=== PATIENT | female | born 1955 | race Caucasian/White ===

== ENCOUNTER 2020-09-25 08:50 | Outpatient (REF) | payer OTHER, SELFPAY | END 2020-09-25 08:51 | disposition home or self-care (01) | LOC: HO.WFDLDS 08:50 | PROVIDERS: PCP Internal Medicine; Visit Provider Internal Medicine | DX: Z20.828 Contact with and (suspected) exposure to other viral communicable diseases (principal) | CPT/HCPCS: C9803; U0003 ==

== ENCOUNTER 2021-08-16 15:11 | Outpatient (REF) | payer OTHER, SELFPAY ==
[2021-08-16 15:20] LABS: MANUAL DIFF FLAG NO
[2021-08-16 16:31] LABS: Basophils Percent Auto 0.5 % (0-2); Eosinophils Percent Auto 0.5 % (0-4); Hematocrit 39.8 % (37.0-47.0); Imm Gran Abs Auto 0.02 X10*3/uL (0.00-0.03); Imm Gran Pct Auto 0.2 % (0.0-0.4); Lymphocytes Absolute Auto 2.7 X10*3/uL (1.2-4.9); Lymphocytes Percent Auto 30.9 % (20-40); Mean Corpuscular HGB Conc 32.7 g/dl (31.0-35.0); Mean Corpuscular Hemoglobin 29.2 pg (27.0-33.0); Mean Corpuscular Volume 89.4 fL (80.0-98.0); Mean Platelet Volume 10.9 fL (9.4-12.3); Monocytes Absolute Auto 0.7 X10*3/uL (0.1-1.2); Neutrophils Absolute Auto 5.2 x10*3/uL (2.0-8.3); Neutrophils Percent Auto 59.9 % (45-73); Platelet Count 275 X10*3/uL (160-400); Red Blood Count 4.45 X10*6/uL (4.20-5.50); Red Cell Distribution Width 12.3 % (11.0-16.0); White Blood Count 8.6 X10*3/uL (4.8-10.8)
[2021-08-16 17:15] LABS: Alanine Aminotransferase 17 U/L (0-31); Albumin Level 4.3 g/dL (3.5-5.0); Alkaline Phosphatase 102 U/L (39-117); Anion Gap 11 (12-20); Aspartate Amino Transferase 15 U/L (5-31); Bilirubin Total 0.2 mg/dL (0.0-1.0); Blood Urea Nitrogen 13 mg/dL (9-16); Calcium 9.6 mg/dL (8.4-10.2); Carbon Dioxide 31 mmol/L (22-29); Chloride 103 mmol/L (96-108); Cholesterol 223 mg/dL; Estimated Glomerular Filt Rate > 60; Glucose Fasting 78 mg/dL (60-99); HDL Cholesterol 52 mg/dL; LDL Cholesterol Calculated 107 mg/dl; Potassium 4.2 mmol/L (3.3-5.1); Sodium 141 mmol/L (135-145); Total Protein 6.9 g/dL (6.5-8.0); Triglycerides 324 mg/dL
[2021-08-16 17:36] LABS: TSH reflex Free T4 1.82 uIU/mL (0.32-4.0); Vitamin D 25-OH Total 14.5 ng/mL (>30)
== END 2021-08-16 15:12 | disposition home or self-care (01) ==
LOC: HO.LAB 15:11
PROVIDERS: Visit Provider Internal Medicine
DX: I10 Essential (primary) hypertension (principal); E78.00 Pure hypercholesterolemia, unspecified; E55.9 Vitamin D deficiency, unspecified
CPT/HCPCS: 36415; 80053; 80061; 82306; 84443; 85025

== ENCOUNTER 2022-11-17 07:32 | Day surgery (SDC) | payer OTHER, SELFPAY ==
--- NOTE | 2022-11-17 07:49 | P.CONAN_ITS ---
HPI - Anesthesia Eval Consult details Narrative: 66 yr old female for screening colon PMFSH Active Problems Active Problems: All Active Problems (Updated 11/14/22 @ 12:14 by Stephania Callaway RN) GERD without esophagitis (Acute) Annual physical exam (Acute) Lipoma of back (Acute) Acute lumbar myofascial strain (Acute) Obesity (BMI 30-39.9) (Acute) Sigmoid diverticulitis (Acute) Cataract, left eye (Acute) Past Medical History Medical History (Updated 11/14/22 @ 12:14 by Stephania Callaway RN) Cataract, left eye Diverticulitis GERD without esophagitis IBS (irritable bowel syndrome) Obesity (BMI 30-39.9) Overweight (BMI 25.0-29.9) Sigmoid diverticulitis Family History Family History Mother Diabetes Heart problem Father Diabetes Family history of problems with anesthesia: No Surgical History Surgical History (Updated 11/14/22 @ 12:14 by Stephania Callaway RN) H/O esophagogastroduodenoscopy H/O oral surgery Hx of hand surgery History of Problems with Anesthesia: No Social History Social History Housing: House Alcohol intake: never Patient Tobacco Use Status: Former Tobacco user Second Hand Smoke Exposure: Yes Advance Directives: No Advance Directives Information Provided: Yes service: No Current occupational status: employed Current occupation: social worker health services d[employer] Meds Allergies Allergy/AdvReac Type Severity Reaction Status Date / Time levofloxacin Allergy Intermediate pruritic Verified 08/16/21 14:46 rash metronidazole Allergy Unknown Verified 11/14/22 12:12 Active Medications: Current Medications Sodium Biphosphate/Sodium Phosphate (Sodium Phosphate,Towns-Dibasic 133 Ml Enema) 133 ml [place] ONCE PRN PRN Reason: Poor Colonoscopy Prep Results Home Medications Medication Instructions Recorded Confirmed Last Taken Type ibuprofen 200 mg tablet (Advil) 200 mg PO Q6H PRN 04/16/21 08/16/21 Unknown History Exam Exam Date and Time: November 17, 2022 0749 Airway Mallampati Class: II TM Dist: >3cm Neck ROM: Full Heart: rrr Lungs: cta Assessment and Plan Assessment Anesthesia Assessment: Anesthesia Plan Discussed and Chart Reviewed Final Anesthetic Review Family History of Problems with Anesthesia: No History of Problems with Anesthesia: No NPO: Yes ASA Class: II Final Preanesthetic Review: No Changes in Pt Med Stat, Meds/Allgs Chart Reviewed, Consent Obtained/Reviewed and Anes Risks/Benef Reviewed Patient Risk: Low Procedure Risk: Low Anesthetic Plan Anesthetic Plan: MAC: Disposition: Standard PACU
[2022-11-17 07:56] VITALS: BMI 29.2
[2022-11-17 08:00] VITALS: BP 182/75; PULSE 83; RESP 18; TEMP 36.6; O2SAT 98
[2022-11-17 08:01] VITALS: BMI 29.2
[2022-11-17 10:10] VITALS: BP 135/72; PULSE 65; RESP 16; TEMP 36.3; O2SAT 98
--- NOTE | 2022-11-17 10:14 | PM.OP ---
Brief Operative Note Date of Service: 11/17/22 Pre-op diagnosis: Scree Procedure: Colonoscopy to the cecum and TI with cold snare polypectomy at 50cm, and biopsy and removal of polyp Surgeon: Ganesh Pal Was an Adoption Social Worker used for this Procedure?: No Estimated blood loss (mL): 2.0 Pathology: other (A. Polyp at 50cm B. rectal polyp) Condition: stable Disposition: PACU
[2022-11-17 10:25] VITALS: BP 125/73; PULSE 62; RESP 16; TEMP 36.3; O2SAT 97
--- NOTE | 2022-11-17 16:19 | OP_ITS ---
SURGEON: Ganesh Pal MD INDICATIONS: The patient presents for evaluation of colorectal cancer screening and personal history of tubular adenomas of the colon. Full consent was obtained from her for this, including risks of bleeding and perforation. PREOPERATIVE DIAGNOSIS: POSTOPERATIVE DIAGNOSIS: PROCEDURE PERFORMED: Colonoscopy to the cecum and terminal ileum with cold snare polypectomy and biopsy and removal of polyp. ESTIMATED BLOOD LOSS: COMPLICATIONS: ANESTHESIA: Monitored anesthesia care ASSISTANTS: SPECIMENS: PREOPERATIVE DIAGNOSES: Colorectal cancer screening and personal history of tubular adenoma of the colon. POSTOPERATIVE DIAGNOSES: Colorectal cancer screening and personal history of tubular adenoma of the colon, colon polyps, diverticulosis, and internal hemorrhoids. DESCRIPTION OF PROCEDURE: The patient was placed in the left lateral decubitus position. The digital rectal exam revealed no abnormalities. The Olympus video pediatric colonoscope was then entered into the rectum and advanced to the cecum. Advancement past the sigmoid colon was quite difficult due to her previous episodes of diverticulitis and presumed adhesions. However, with abdominal wall pressure, I was able to get past and then reach the cecum. Once in the cecum, I did identify a normal appearing cecal pouch with appendiceal orifice and normal appearing ileocecal valve. The terminal ileum was cannulated and appeared normal. The scope was then withdrawn back in the colon. The entire cecum and ileocecal valve appeared normal. The scope was then slowly withdrawn assessing all mucosal surface carefully. Preparation was excellent. At 50cm, there was a 5 mm polyp, which was removed by cold snare polypectomy and recovered by suction. The polypectomy site appeared clean, without any sign of residual polyp nor significant bleeding. In the rectum, there was an approximately 3 mm polyp which was biopsied and completely removed with cold biopsy forceps. I did not visualize any other polyps, colitis nor angiodysplasia. There were occasional diverticula in the ascending colon. There was a moderate amount of diverticulosis and spasm in the sigmoid colon. I did not visualize any sign of colitis nor angiodysplasia. In the rectum, the scope was retroflexed visualizing internal hemorrhoids, but no other pathology. The rectal mucosa appeared normal. The scope was straightened and withdrawn from the patient. She tolerated the procedure well and was returned to the recovery area in stable condition. IMPRESSION: 1. Colon polyps. 2. Diverticulosis. 3. Internal hemorrhoids. PLAN: The results of the pathology will be checked. I would recommend a repeat colonoscopy in 5 years for further screening and surveillance. She will continue her Metamucil on a daily basis and dicyclomine on a p.r.n. basis. If she has recurrent episodes of diverticulitis she will need to call, but she should also follow up with Dr. Bishop in that regard given her previous history and our recommendations for surgery given all the previous episodes of the diverticulitis with some associated complications including an abscess that had to be drained with CT guidance. She was advised not to use any aspirin nor NSAIDs for one week. MD JEANNINE Newell/PATRICE / [id number] MTDD
== END 2022-11-17 11:10 | disposition home or self-care (01) ==
PROVIDERS: PCP Internal Medicine; Visit Provider Internal Medicine
PROC: 0DJD8ZZ Inspection of Lower Intestinal Tract, Via Natural or Artificial Opening Endoscopic (ICD-10-PCS; CPT 45378; principal; 2022-11-17 08:30)
DX: Z12.11 Encounter for screening for malignant neoplasm of colon (principal); Z86.010 Personal history of colon polyps; Z80.0 Family history of malignant neoplasm of digestive organs; D12.5 Benign neoplasm of sigmoid colon; K62.1 Rectal polyp; K57.30 Diverticulosis of large intestine without perforation or abscess without bleeding; K64.8 Other hemorrhoids; K58.9 Irritable bowel syndrome, unspecified; Z87.19 Personal history of other diseases of the digestive system; K21.9 Gastro-esophageal reflux disease without esophagitis; Z79.1 Long term (current) use of non-steroidal anti-inflammatories (NSAID); Z79.899 Other long term (current) drug therapy; Z88.1 Allergy status to other antibiotic agents; Z87.891 Personal history of nicotine dependence
CPT/HCPCS: 45385; 45380; 88305; J2250

== ENCOUNTER 2024-11-09 13:04 | Outpatient (AMB) | payer OTHER, SELFPAY ==
--- NOTE | 2024-11-09 13:06 | MHC.PC.OV ---
Vital Signs 11/09/24 13:07 Height 5 ft 6 in Weight 185 lb BMI 29.9 BP 124/80 Blood Pressure Location Lt brachial Position Sitting Pulse 74 Pulse Source Pulse Oximeter Pulse Oximetry (%) 98 Oxygen Delivery Method Room Air Intake Visit Reasons: re-establish care DR Ha Casing Cooker Required: No Accompanied by: Self / Same As Patient Allergies levofloxacin Allergy (Intermediate, Verified 11/09/24 13:26) pruritic rash metronidazole Allergy (Verified 11/09/24 13:26) Unknown Medication List - Last Reconciled 11/09/24 by SEAN Espino dicyclomine 10 mg PO QID PRN 15 days ibuprofen (Advil) 200 mg PO Q6H PRN Tobacco use date assessed: 11/09/24 Fall risk assessment: 2 + Falls in past year Last assessed Fall Risk: 11/09/24 Dental Screening Dental Screen Date: 11/09/24 Did you have a dental visit in the last 12 months?: Yes Did you have a dental problem in the last 6 months where you did not have access to dental care?: No Was dental information given to patient?: Patient has dentist HPI re-establish care DR Ha HPI Details The patient 68-year-old female with significant past medical history GERD, diverticulosis, frequent reoccurring sigmoid diverticulitis, IBS and obesity She is a patient of Dr. Ha, she was last seen on 08/16/2021. The patient is followed by Dr. Pal, oil well service unit operator-patient reports that she was referred by Dr. Pal to Dr. Bishop in General surgery few years ago due to her recurrent diverticulitis. The patient reports that she consulted with Dr. Bishop and was told when he is ready for the surgery to let him know Patient reports that she was hesitant about doing the surgery and that they explained to her that it is better to get it done electively instead of waiting until she has a perforation. The patient reports that she is reestablishing care today that she has not seen Dr. Ha in a while. However, she needs a referral to a surgeon preferably at [facility] to get a 2nd opinion and ongoing forward with surgery to fix her diverticulosis Patient reports that she has been having diverticulitis for years on and off Reports that she finished antibiotics recently for diverticulitis and also had diverticulitis 6 months prior. Reports multiple recurrent use of antibiotics for this issue. Send reports her symptoms on and off as bloating, constipation and abdominal pressure in the suprapubic area more towards the right side. Reports that she continue to have some discomfort in the right lower quadrant but it is not as bad as it was before The patient denies smoking, alcohol use The patient requests a referral to a colorectal surgery preferably in [facility] Denies chest pain, shortness of pain, heart palpitation, dizziness [facility] Medical History (Updated 11/10/24 @ 14:13 by SEAN Espino) IBS (irritable bowel syndrome) Sigmoid diverticulitis Overweight (BMI 25.0-29.9) Cataract, left eye Obesity (BMI 30-39.9) GERD without esophagitis Diverticulitis Surgical History H/O oral surgery H/O esophagogastroduodenoscopy Hx of hand surgery Family History Mother Diabetes Heart problem Father Diabetes Social History Housing: House Alcohol intake: never Patient Tobacco Use Status: Former Tobacco user e-Cigarette/Vaping Use: Never Used Second Hand Smoke Exposure: Yes service: No Current occupational status: employed Current occupation: social staff worker dta Cognitive needs: No Hearing needs: No Vision needs: No Questionnaire PHQ-9 Over the last 2 weeks, how often have you been bothered by any of the following problems? 1. Little interest or pleasure in doing things: not at all 2. Feeling down, depressed, or hopeless: not at all 3. Trouble falling or staying asleep, or sleeping too much: not at all 4. Feeling tired or having little energy: not at all 5. Poor appetite or overeating: not at all 6. Feeling bad about yourself - or that you are a failure or have let yourself or your family down: not at all 7. Trouble concentrating on things, such as reading the newspaper or watching television: not at all 8. Moving or speaking so slowly that other people could have noticed. Or the opposite - being so fidgety or restless that you have been moving around a lot more than usual: not at all 9. Thoughts that you would be better off or of hurting yourself in some way: not at all Total score: 0 Depression Screening Interpretation: Negative Depression Screening Done: Yes 33196 - PHQ-9 Billing: Yes Source: Developed by Drs. Ganesh Lafleur, Mabel Yeboah, Ant Galvan and colleagues, with an educational honorio from [employer]. Thrive Questionnaire Date Thrive assessed: 11/09/24 I am a: Patient What is your living situation today?: I have a steady place to live Within the past 12 months, did the food you bought not last and you didn't have the money to get more?: Never true Within the past 12 months, did you worry whether your food would run out before you got money to buy more?: Never true Do you have trouble paying for medicines?: No Do you have trouble getting transportation to medical appointments?: No Do you have trouble paying your heating and electricity bill?: No Do you have trouble taking care of your child, family member or friend?: No Do you have trouble with day-to-day activities such as bathing, preparing meals, shopping, managing finances, etc.?: No Are you currently unemployed and looking for a job?: No Are you interested in more education?: No Please select the resources that you would like help with: None Currently or been in a relationship where the following occur: No concerns reported THRIVE Score: 0 AUDIT C Alcohol Use Questionnaire (AUDIT-C) 1. How often do you have a drink containing alcohol?: Never 3. How often do you have six or more drinks on one occasion?: Never Total Score: 0 JEREMY-7 AMB Questionnaire JEREMY-7 Date JEREMY - 7 assessed: 11/09/24 Feeling nervous, anxious, or on edge: 0 = Not at all Not being able to stop or control worryin = Not at all Worrying too much about different things: 0 = Not at all Trouble relaxin = Not at all Being so restless that it is hard to sit still: 0 = Not at all Becoming easily annoyed or irritable: 0 = Not at all Feeling afraid as if something awful might happen: 0 = Not at all Total JEREMY-7 score (0-4 normal; 5-9 mild; 10-14 moderate; 15-21 severe): 0 Source: Developed by Drs. Ganesh Lafleur, Mabel Yeboah, Ant Galvan and colleagues, with an educational honorio from [employer]. JEREMY-7 Assessment Billing JEREMY-7 Assessment Tool: JEREMY-7 Assessment 87107 Review of Systems Const Details: Denies chills, Denies fatigue, Denies fever(s), Denies headache(s) and Denies weakness HEENT Denies change in vision, Denies dizziness, Denies headache(s), Denies hearing loss, Denies nasal congestion, Denies sinus pain, Denies sinus pressure and Denies sore throat Card Denies chest pain, Denies lightheadedness, Denies dyspnea and Denies other (palpitations) Resp Denies cough, Denies dyspnea and Denies wheezing GI Recurrent right lower quadrant abdominal pain, Denies melena, Denies hematochezia, reports thin bowel habits (reports hx hemorrhoids), Denies dyspepsia and Denies nausea Denies hematuria and Denies dysuria Musc Denies abnormal gait, Denies myalgias, Denies arthralgias, Denies numbness and Denies tingling Skin/Breast Denies rash, Denies unusual bruising and Denies wounds Neuro Denies abnormal gait, Denies dizziness, Denies headache(s), Denies memory loss, Denies numbness, Denies Sensory deficit (Neuro), Denies tingling and Denies weakness Psych Denies anxiety, Denies depression and Denies memory loss Endo Denies cold intolerance, Denies fatigue, Denies heat intolerance, Denies polydipsia and Denies polyuria Ok/Lymph Denies easy bleeding and Denies easy bruising Aller/Immun Denies wheezing Physical exam (Primary Care) Vital Signs: Last Vital Signs Pulse 74 11/09/24 13:07 BP 124/80 11/09/24 13:07 Pulse Ox 98 11/09/24 13:07 Oxygen Delivery Method Room Air 11/09/24 13:07 BMI result Body Mass Index 29.9 Tobacco/Smoking Status: Tobacco use Status Tobacco use date assessed 11/09/24 11/09/24 13:09 Patient Tobacco Use Status Former Tobacco user 11/09/24 13:09 e-Cigarette/Vaping Use Never Used 11/09/24 13:09 PHQ-9: PHQ-9 Score PHQ-9: Total score 0 11/10/24 14:17 Depression Screening Interpretation: Negative Thrive Assessment: Date of Thrive Assessment Date Thrive assessed 11/09/24 11/09/24 13:13 Currently or been in a relationship where the following occur: No concerns reported Const Other: General: no acute distress, well developed, alert and awake Nutritional Appearance: well nourished Orientation/consciousness: patient oriented x3 HENMT Head: Yes normocephalic and Yes atraumatic Ears: hearing grossly normal bilaterally and TM's normal bilaterally General nose exam: Normal external nose present and Normal nares present Mouth: Normal oral and palatal mucosa present and moist mucous membranes Eyes Pupils: Equal, round and reactive pupils present and Pupil accommodation reflex normal EOM: EOMs intact bilaterally Neck Neck: Yes normal visual inspection, Yes no lymphadenopathy and Yes trachea midline Thyroid: Thyroid normal Carotids: no bruits Lymphatic: no lymphadenopathy noted Chest Chest palpation & inspection: normal inspection of the chest Resp Effort & Inspection: normal respiratory effort Auscultation: clear to auscultation bilaterally Cardio Rate: regular rate Rhythm: regular rhythm Heart sounds: S1 normal heart sound present, S2 normal heart sound present, no gallops, no murmurs and no rubs GI Palpation (GI): Right lower quadrant abdominal tenderness (reports that it was worse before getting the antibiotics, treated for diverticulitis) Auscultation: normal bowel sounds General: Yes no CVA tenderness Back/Spine/Pelvis Back: no CVA tenderness Cervical Spine: cervical ROM normal and No Cervical spine tenderness Thoracic/Lumbar Spine: No lumbar tenderness Skin General: warm and dry. Normal skin color. Normal skin turgor Lesions: no lesions Nails: normal Extrem General: Yes normal to inspection, No edema and No calf tenderness Psych Appearance: grossly normal Affect: normal affect Attitude: cooperative Thought process: Normal thought process present Coding Level of Care Code Est Pt Level 4 (32137) Diagnoses GERD without esophagitis K21.9 Overweight (BMI 25.0-29.9) E66.3 Sigmoid diverticulitis K57.32 Irritable bowel syndrome with constipation K58.1 Irritable bowel syndrome type: with constipation Hemorrhoids, unspecified hemorrhoid type K64.9 Hemorrhoid type: unspecified Additional Codes JEREMY-7 Assessment Billing - JEREMY-7 Assessment Tool: JEREMY-7 Assessment 91191 ([id number]) PHQ-9 - 63542 - PHQ-9 Billing: Yes ([id number]) Time Spent (min) 38 Assessment & Plan Assessment & Plan (1) GERD without esophagitis: Code(s): K21.9 - Gastro-esophageal reflux disease without esophagitis Category: Medical Plan: Stable: Patient is currently not on any PPIs. Reinforced dietary restrictions Follow up with GI as scheduled (2) Overweight (BMI 25.0-29.9): Code(s): E66.3 - Overweight Category: Medical Plan: Encouraged dietary restriction/activity as tolerated (3) Sigmoid diverticulitis: Comment: CT Abdomen and pelvis done at [facility] a few days ago on 04/13/2021 revealed (+) acute sigmoid diverticulitis Code(s): K57.32 - Diverticulitis of large intestine without perforation or abscess without bleeding Category: Medical Plan: Patient a CT of the abdomen and pelvis done at [facility] on 04/13/2021 that showed acute sigmoid diverticulitis Patient has been followed by Dr. Pal, who recommended her to Dr. Bishop in general surgery due to her frequent reoccurring diverticulitis Patient has been treated with antibiotics multiple times. Reports that she is having an average of 3 year The patient reports that she recently finished antibiotics for diverticulitis. This episode has been the worse so far and she is thinking about going forward with the surgery recommendation. However, she would like this to be done at [facility] so she is requesting a referral to a colorectal surgeon in [facility] (4) IBS (irritable bowel syndrome): Code(s): K58.9 - Irritable bowel syndrome, unspecified Category: Medical Qualifiers: Irritable bowel syndrome type: with constipation Qualified Code(s): K58.1 - Irritable bowel syndrome with constipation Plan: Patient reports that at times when she started feeling her abdominal pain, she holds off because she is hoping that is her IBS instead of the diverticulitis Reports that she does not know how they are able to determine if it is her IBS versus diverticulitis. However, she reports that she gets extremely sick during these episodes and the pain is in her right lower abdomen and somewhat in her suprapubic area as well. However she gets better with antibiotic treatments. This last episode of diverticulitis, the antibiotics took longer to be effective and this made her concerned. As a result, she made her mind up in going forward with her oil well service unit operator recommendation. (5) Hemorrhoids: Code(s): K64.9 - Unspecified hemorrhoids Category: Medical Qualifiers: Hemorrhoid type: unspecified Qualified Code(s): K64.9 - Unspecified hemorrhoids Plan: Patient has a history of hemorrhoids this was also verified and colonoscopy (11/2022). Reports recurrent constipation and thin stools. Increase dietary fiber and p.o. fluids Plan Patient has a follow up appointment on 01/03/2025. Labs were ordered for patient to do as soon as possible. She has not done blood work in a while Orders: Orders Complete Blood Count Auto Diff 11/09/24 K21.9 - Gastro-esophageal reflux disease without esophagitis, K57.32 - Diverticulitis of large intestine without perforation or abscess without bleeding, Z00.00 - Encounter for general adult medical examination without abnormal findings TSH reflex Free T4 11/09/24 K21.9 - Gastro-esophageal reflux disease without esophagitis, K57.32 - Diverticulitis of large intestine without perforation or abscess without bleeding, Z00.00 - Encounter for general adult medical examination without abnormal findings Vitamin D 25-OH Total 11/09/24 K21.9 - Gastro-esophageal reflux disease without esophagitis, K57.32 - Diverticulitis of large intestine without perforation or abscess without bleeding, Z00.00 - Encounter for general adult medical examination without abnormal findings Comprehensive [place]. Panel Fast 11/09/24 K21.9 - Gastro-esophageal reflux disease without esophagitis, K57.32 - Diverticulitis of large intestine without perforation or abscess without bleeding, Z00.00 - Encounter for general adult medical examination without abnormal findings Lipid Panel 11/09/24 K21.9 - Gastro-esophageal reflux disease without esophagitis, K57.32 - Diverticulitis of large intestine without perforation or abscess without bleeding, Z00.00 - Encounter for general adult medical examination without abnormal findings UA CC w/rflx Micro + Cult 11/09/24 K21.9 - Gastro-esophageal reflux disease without esophagitis, K57.32 - Diverticulitis of large intestine without perforation or abscess without bleeding, Z00.00 - Encounter for general adult medical examination without abnormal findings Glucose Fasting 11/09/24 K21.9 - Gastro-esophageal reflux disease without esophagitis, K57.32 - Diverticulitis of large intestine without perforation or abscess without bleeding, Z00.00 - Encounter for general adult medical examination without abnormal findings
[2024-11-09 13:07] VITALS: BP 124/80; PULSE 74; O2SAT 98; BMI 29.9
--- OUTSIDE RECORDS SUMMARY | 2024-11-09 14:27 | XMS_ITS | Clinical Summary ---
Author Organization [facility] Address [address] [place] [address] Care Team Providers Care Proof Technician Name Role Phone Justyn Ha MD Primary Care Provider [phone] Immunizations Name Administration Dates Next Due Covid-19, Vector-nr (Cassandra), 0.5 Ml 08/10/2021 ,01/07/2021 Influenza,injectable,quad,Prsrv Fr 08/16/2021, Influenza,injectable,quad,preservative 9 Influenza,seasonal,trivalent ,preservative (FLUZONE MDV) 11/05/2017,08/28/2015 Zoster (Shingrix) 09/07/2019 Social History Tobacco Use Types Packs/Day Years Used Date Smoking Tobacco: Never Assessed Intimate Partner Violence Answer Date R ecorded Fear of Current or Ex-Partner Not on file Emotionally Abused Not on file 05/28/2023 Physically Abused Not on file 05/28/2023 Sexually Abused Not on file 05/28/2023 Feel Safe at Home Not on file 05/28/2023 Comments Unknown Sex and Gender Information Value Date Recorded Sex Assigned at Not on file Legal Sex Female 4:30 PM EST Gender Identity Not on file Sexual Orientation Not on file Plan of Treatment Health Maintenance Due Date Last Done Comments Hepatitis C Screening 1955 DTaP/Tdap/Td (1 - Tdap) 12/27/1973 Mammogram/Breast Imaging 1995 Colon Cancer Screening 12/27/2000 Pneumococcal 50+ years (1 of 1 - PCV) 12/27/2005 Zoster (Shingrix) (2 of 2) 11/02/2019 09/07/2019 Bone Density 12/27/2020 COVID-19 Vaccine ( season) 2024 08/10/2021, 01/07/2021 Influenza (#1) 2024 08/16/2021, 1201/2019, 07/31/2018, Additional history exists RSV (1 - 1-dose 75+ series) 12/27/2030 HPV Vaccine Aged Out No longer eligi ble based on patient's age to complete this topic Hep A Aged Out No longer eligi ble based on patient's age to complete this topic Hep B Aged Out No longer eligi ble based on patient's age to complete this topic Hib Aged Out No longer eligi ble based on patient's age to complete this topic Meningococcal ACWY Aged Out No longer eligible based on patient's age to complete this topic Pap Smear Discontinued Zoster (Zostavax) Discontinued Insurance [facility] Care Teams Proof Technician Relationship Specialty Start Date End Date Justyn Ha MD [address] [place] [address] PCP - General Internal Medicine 11/07/20
== END 2024-11-09 14:13 | disposition home or self-care (01) ==
PROVIDERS: PCP Internal Medicine
DX: K21.9 Gastro-esophageal reflux disease without esophagitis (principal); E66.3 Overweight; K57.32 Diverticulitis of large intestine without perforation or abscess without bleeding; K58.1 Irritable bowel syndrome with constipation; K64.9 Unspecified hemorrhoids

== ENCOUNTER → 2024-11-09 13:04 | Outpatient (BNVA) | payer OTHER, SELFPAY | PROVIDERS: PCP Internal Medicine | DX: K21.9 Gastro-esophageal reflux disease without esophagitis (principal); E66.3 Overweight; Z68.29 Body mass index [BMI] 29.0-29.9, adult; K57.32 Diverticulitis of large intestine without perforation or abscess without bleeding; K58.1 Irritable bowel syndrome with constipation; K64.9 Unspecified hemorrhoids | CPT/HCPCS: 96127 ==

== ENCOUNTER 2024-11-28 09:00 | Outpatient (REF) | payer OTHER, SELFPAY ==
--- OUTSIDE RECORDS SUMMARY | 2024-11-28 09:32 | XMS_ITS ---
Author Organization [facility] Address [address] [place] [phone] Care Team Providers Care Skilled Laborer Name Role Phone Leland LOMBARDI, [place] Primary Care Provider Ganesh Cano Unavailable [phone] REASON FOR VISIT left message on v/m MEDICATIONS Medication SIG (Take, Route, Frequency, Duration) Notes Start Date End Date Status Amoxicillin-Pot Clavulanate 875-125 MG 1 tablet Orally every 8 hrs for 10 days 05/02/2024 Active Encounters Encounter Location Date Provider Diagnosis [facility] [address] [place] [address] 05/02/20 Ganesh Pal PLAN OF TREATMENT Medication Medication Name Sig Start Date Stop Date Notes Amoxicillin-Pot Clavulanate 875-125 MG 1 tablet Orally every 8 hrs for 10 days 05/02/2024
--- OUTSIDE RECORDS SUMMARY | 2024-11-28 09:32 | XMS_ITS | Patient Health Record ---
Author Organization [facility] Address [address] [place] [address] Care Team Providers Care Motor Vehicle Lecturer Name Role Phone Leland LOMBARDI, [place] Primary Care Provider Ganesh Cano Unavailable [phone] ALLERGIES Allergen (clinical drug ingredient) Drug/Non Drug Allergy documented on EMR Reaction Allergy Type Onset Date Status metronidazole Metronidazole Unknown Drug Allergy Active levofloxacin Levofloxacin Unknown Drug Allergy A ctive REASON FOR REFERRAL No Information MEDICATIONS Medication SIG (Take, Route, Frequency, Duration) Notes Start Date End Date Status Metamucil Active Amoxicillin-Pot Clavulanate 875-125 MG 1 tablet Orally every 8 hrs for 10 days 05/02/2024 Active Dicyclomine HCl 10 MG TAKE 1 TO 2 CAPSUL ES BY MOUTH EVERY 6 HOURS NEEDED FOR ABDOMINAL CRAMPS/DISCOMFORT for 5 Active Fiber Choice Active Tylenol PRN Active Ibuprofen PRN Active IMMUNIZATIONS Vaccine Route Administration Date Status Comme nts Influenza Unknown 09/15/2019 Administered Influenza Unknown 08/22/2020 Administered Influenza Unknown 06/05/2022 Administered SOCIAL HISTORY Tobacco Use: Social History Observation Description Date Details (start date - stop date) Former Smoker NA - NA Sex Assigned At : Social History Observation Description Sex Assigned At Unknown Tobacco Use/Smoking Question Answer Notes Patient is a former smoker When did you stop smoking? 34 years ago How long has it been since you last smoked? > 10 years Alcohol Screen Question Answer Notes Did you have a drink containing alcohol in the p ast year? No Points 0 Interpretation Negative PROBLEMS Problem Type ICD Code Onset Dates Problem Status W/U Status Risk SNOMED Code Notes Problem Encounter for screening for malignant neoplasm of colon (Z12.11) Active confirmed Screening for malignant neoplasm of colon (778409812) Problem History of adenomatous polyp of colon (Z86.010) Active confirmed History o f adenomatous polyp of colon (198606821) Problem Diverticulitis (K57.92) Active confirmed 690591206 Problem Gastroesophageal reflux disease, esophagitis presence not specified (K21.9) Active confirmed 787148143 Problem Family history of colon cancer (Z80.0) Active confirmed 479837613 Problem Abnormal CT scan, sigmoid colon (R93.3) Active confirmed 234840648 Problem Irritable bowel syndrome, unspecified type (K58.9) Active confirmed 73405769 Problem Abdominal pain, acute, left lower quadrant (R10.32) Active confirmed Left lower quadrant pain (325483269) Problem Diverticulosis of colon (K57.30) Active confirmed Diverticulosi s of colon (941043459) Encounters Encounter Location Date Provider Diagnosis [facility] [address] [place] [address] 05/02/2024 Ganesh Pal [facility] [address] [place] [address] 10/31/2024 Ganesh Pal PLAN OF TREATMENT Pending Test Test Name Order Date BUN 11/15/2020 BUN 01/26/2020 BUN 03/07/2020 CREATININE 11/15/2020 CREATININE 01/26/2020 CREATININE 03/07/2020 LIVER PROFILE 11/15/2020 AMYLASE 11/15/2020 LIPASE 11/15/2020 CBC w DIFF 11/15/2020 CT ABD & PELVIS WITH CONTRAST 11/15/2020 Future Test Test Name Order Date UPPER GI ENDOSCOPY 07/31/2017 COLONOSCOPY 07/31/2017 COLONOSCOPY 09/02/2022 Insurance Providers Payer Name Payer Address Payer Phone Subscriber Number Group Number Insured Name Patient Relationship to Insured Coverage Start Date Coverage End Date [facility] [address] [place] [phone] [id number] VIC SINGH Self - patient is the insured MEDICAL (GENERAL) HISTORY Medical History History ICD Code Denies CT,DM,CVA,Lung disease,renal dise ase Diverticulitis 2014--seen on CT scan---o utpatient antibiotics EGD in 09/2017-HH, normal du odenal bx, gastric bx neg for Hpylori, normal esophageal biopsies Colonoscopy in 09/2017-1 sma ll tubular adenoma, colon biopsies were neg. for microscopic colitis Diverticulitis in 05/2019(out patient antibiotics) and 12/2019(hospitalized for 1 week at [facility])--CT had an abscess. She had some increasing pain toward the end of February and a followup CAT scan described improvement as compared to the CAT scan in December, but there was still some residual inflammation and a smaller abscess as compared to the scan back in December. CT scan in 04/2020 improved with no further inflammation nor abscess. She saw Dr. Bishpo in 03/2020 who reommended surgery at her discretion . Had episodes of presumed diverticulitis in 07/2020 and 11/2020 treated with outpatient po Augmentin; she had an episode of persistent left-sided abdominal discomfort in May of 2022 that resolved with outpatient Augmentin-she did not have any imaging studies done at that time. IBS Surgical History Surgery Date(Month/Year) Oral surgery Knuckle surgery cataract surgery in right eye Hospitalization History Reason Date(Month/Year)
--- OUTSIDE RECORDS SUMMARY | 2024-11-28 09:32 | XMS_ITS ---
Author Organization [facility] Address [address] [place] [phone] Care Team Providers Care Rinkman Name Role Phone Leland LOMBARDI, [place] Primary Care Provider Ganesh Cano [facility] [phone] REASON FOR VISIT diverticulitis MEDICATIONS Medication SIG (Take, Route, Frequency, Duration) Notes Start Date End Date Status Amoxicillin-Pot Clavulanate 875-125 MG 1 tablet Orally every 8 hrs for 10 days 05/02/2024 Active Encounters Encounter Location Date Provider Diagnosis [facility] [address] [place] [phone] 10/31/2024 Ganesh Pal PLAN OF TREATMENT Medication Medication Name Sig Start Date Stop Date Notes Amoxicillin-Pot Clavulanate 875-125 MG 1 tablet Orally every 8 hrs for 10 days 05/02/2024
--- OUTSIDE RECORDS SUMMARY | 2024-11-28 09:33 | XMS_ITS | Clinical Summary ---
Author Organization [facility] Address [address] [place] [address] Care Team Providers Care [employer] Librarian Name Role Phone Justyn Ha MD Primary Care Provider [phone] Immunizations Name Administration Dates Next Due Covid-19, [...] Pap Smear Discontinued Zoster (Zostavax) Discontinued Insurance [facility] Care Teams Elementary School Librarian Relationship Specialty Start Date End Date Justyn Ha MD [address] [place] [address] PCP - General Internal Medicine 11/07/20
[2024-11-28 10:40] LABS: MANUAL DIFF FLAG NO
[2024-11-28 10:44] LABS: Basophils Percent Auto 0.4 % (0-2); Eosinophils Absolute Auto 0.1 X10*3/uL (0.0-0.4); Hematocrit 40.2 % (37.0-47.0); Hemoglobin 13.8 g/dl (12.0-16.0); Imm Gran Abs Auto 0.04 X10*3/uL (0.00-0.03); Imm Gran Pct Auto 0.5 % (0.0-0.4); Lymphocytes Absolute Auto 2.1 X10*3/uL (1.2-4.9); Lymphocytes Percent Auto 26.8 % (20-40); Mean Corpuscular HGB Conc 34.3 g/dl (31.0-35.0); Mean Corpuscular Volume 87.4 fL (80.0-98.0); Mean Platelet Volume 10.2 fL (9.4-12.3); Monocytes Absolute Auto 0.6 X10*3/uL (0.1-1.2); Monocytes Percent Auto 7.8 % (2-11); Neutrophils Percent Auto 63.5 % (45-73); Platelet Count 274 X10*3/uL (160-400); Red Cell Distribution Width 12.3 % (11.0-16.0); White Blood Count 7.8 X10*3/uL (4.8-10.8)
[2024-11-28 11:41] LABS: TSH reflex Free T4 2.26 uIU/mL (0.32-4.0); Vitamin D 25-OH Total 20.5 ng/mL (>30)
[2024-11-28 11:55] LABS: Anion Gap 15 (12-20)
[2024-11-28 12:00] LABS: Alanine Aminotransferase 17 U/L (0-31); Albumin Level 4.2 g/dL (3.5-5.0); Alkaline Phosphatase 107 U/L (39-117); Aspartate Amino Transferase 21 U/L (5-31); Bilirubin Total 0.4 mg/dL (0.0-1.0); Blood Urea Nitrogen 10 mg/dL (9-16); Calcium 9.6 mg/dL (8.4-10.2); Carbon Dioxide 24 mmol/L (22-29); Chloride 109 mmol/L (96-108); Cholesterol 206 mg/dL (<200); Estimated Glomerular Filt Rate > 60; Glucose Fasting 121 mg/dL (60-99); HDL Cholesterol 59 mg/dL (>40); LDL Cholesterol Calculated 112 mg/dL (<100); Potassium 3.8 mmol/L (3.3-5.1); Sodium 144 mmol/L (135-145); Triglycerides 177 mg/dL (<150)
== END 2024-11-28 09:01 | disposition home or self-care (01) ==
LOC: HO.10HDL 09:00
DX: Z00.00 Encounter for general adult medical examination without abnormal findings (principal); K21.9 Gastro-esophageal reflux disease without esophagitis; K57.32 Diverticulitis of large intestine without perforation or abscess without bleeding; Z13.220 Encounter for screening for lipoid disorders; Z13.228 Encounter for screening for other metabolic disorders; Z13.29 Encounter for screening for other suspected endocrine disorder
CPT/HCPCS: 36415; 80053; 80061; 82306; 84443; 85025

== ENCOUNTER 2025-01-03 15:01 | Outpatient (AMB) | payer OTHER, SELFPAY ==
[2025-01-03 15:06] VITALS: BP 132/76; PULSE 83; O2SAT 96; BMI 29.9
--- NOTE | 2025-01-03 15:06 | MHC.PC.OV ---
Vital Signs 01/03/25 15:06 Height 5 ft 6 in Weight 185 lb BMI 29.9 BP 132/76 Blood Pressure Location Lt brachial Position Sitting Pulse 83 Pulse Source Pulse Oximeter Pulse Oximetry (%) 96 Oxygen Delivery Method Room Air Intake Visit Reasons: follow up appt Salvage Laborer Required: No Accompanied by: Self / Same As Patient Allergies levofloxacin Allergy (Intermediate, Verified 01/03/25 15:33) pruritic rash metronidazole Allergy (Verified 01/03/25 15:33) Unknown Medication List - Last Reconciled 01/03/25 by Justyn Ha MD dicyclomine 10 mg PO QID PRN 15 days ibuprofen (Advil) 200 mg PO Q6H PRN Tobacco use date assessed: 01/03/25 Fall risk assessment: 2 + Falls in past year Last assessed Fall Risk: 01/03/25 Dental Screening Dental Screen Date: 01/03/25 Did you have a dental visit in the last 12 months?: Yes Did you have a dental problem in the last 6 months where you did not have access to dental care?: No Was dental information given to patient?: Patient has dentist HPI follow up appt HPI Details Patient comes in today for her follow up visit - I have not seen her since August 2021 but she did present to the office a couple of months ago to reestablish care and was seen by one of our midlevel providers in the meantime She requested for a referral to a colorectal surgeon at [facility] back then for a second opinion regarding recommendations by both Dr. Pal (who is her treating net software architect) and by Dr. Bishop, who she was referred to by Dr. Pal for surgical consultation regarding undergoing elective partial colectomy due to her recurrent diverticular attacks/flare ups of diverticulitis States that she was advised by Dr. Bishop that it would be much more advisable for her to undergo partial colectomy electively rather than as an emergency surgery and that she can just reach out to him at any time when she feels ready to undergo the procedure She was reportedly advised against undergoing partial colectomy by the colorectal surgeon that she saw at [facility] recently, which is causing her to have even more doubt as to what she should do - we have not yet received any correspondence from the surgeon she saw recently at [facility] so I cannot really comment on why that advice was given to her States that she has not had any flare-ups of her diverticulitis since she was seen here a couple of months ago and that aside from the confusion and discrepancy from the 2 different colorectal surgeons with regards to their recommendations, she feels okay She denies any headaches or dizziness Denies any chest pains, no shortness of breath No nausea/vomiting, no abdominal pain lately No change in bowel habits noted States that she had some follow-up labs done a few weeks ago - to discuss her results [facility] Medical History (Updated 01/08/25 @ 22:36 by Justyn Ha MD) Overweight (BMI 25.0-29.9) Vitamin D deficiency Impaired fasting glucose Mixed hyperlipidemia IBS (irritable bowel syndrome) Sigmoid diverticulitis Cataract, left eye Obesity (BMI 30-39.9) GERD without esophagitis Diverticulitis Surgical History H/O oral surgery H/O esophagogastroduodenoscopy Hx of hand surgery Family History Mother Diabetes Heart problem Father Diabetes Social History Housing: House Alcohol intake: never Patient Tobacco Use Status: Former Tobacco user e-Cigarette/Vaping Use: Never Used Second Hand Smoke Exposure: Yes service: No Current occupational status: employed 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 1. Little interest or pleasure in doing things: not at all 2. Feeling down, depressed, or hopeless: not at all 3. Trouble falling or staying asleep, or sleeping too much: not at all 4. Feeling tired or having little energy: not at all 5. Poor appetite or overeating: not at all 6. Feeling bad about yourself - or that you are a failure or have let yourself or your family down: not at all 7. Trouble concentrating on things, such as reading the newspaper or watching television: not at all 8. Moving or speaking so slowly that other people could have noticed. Or the opposite - being so fidgety or restless that you have been moving around a lot more than usual: not at all 9. Thoughts that you would be better off or of hurting yourself in some way: not at all Total score: 0 Depression Screening Interpretation: Negative Depression Screening Done: Yes 81999 - PHQ-9 Billing: Yes Source: Developed by Drs. Ganesh Lafleur, Mabel Yeboah, Ant Galvan and colleagues, with an educational honorio from [employer]. Thrive Questionnaire Date Thrive assessed: 01/03/25 I am a: Patient What is your living situation today?: I have a steady place to live Within the past 12 months, did the food you bought not last and you didn't have the money to get more?: Never true Within the past 12 months, did you worry whether your food would run out before you got money to buy more?: Never true Do you have trouble paying for medicines?: No Do you have trouble getting transportation to medical appointments?: No Do you have trouble paying your heating and electricity bill?: No Do you have trouble taking care of your child, family member or friend?: No Do you have trouble with day-to-day activities such as bathing, preparing meals, shopping, managing finances, etc.?: No Are you currently unemployed and looking for a job?: No Are you interested in more education?: No Please select the resources that you would like help with: None Currently or been in a relationship where the following occur: No concerns reported THRIVE Score: 0 AUDIT C Alcohol Use Questionnaire (AUDIT-C) 1. How often do you have a drink containing alcohol?: Monthly or less 2. How many drinks containing alcohol do you have on a typical day when you are drinking?: 1 or 2 3. How often do you have six or more drinks on one occasion?: Less than monthly Total Score: 2 Score Reviewed/Action Taken: Yes JEREMY-7 AMB Questionnaire JEREMY-7 Date JEREMY - 7 assessed: 01/03/25 Feeling nervous, anxious, or on edge: 0 = Not at all Not being able to stop or control worryin = Not at all Worrying too much about different things: 0 = Not at all Trouble relaxin = Not at all Being so restless that it is hard to sit still: 0 = Not at all Becoming easily annoyed or irritable: 0 = Not at all Feeling afraid as if something awful might happen: 0 = Not at all Total JEREMY-7 score (0-4 normal; 5-9 mild; 10-14 moderate; 15-21 severe): 0 Source: Developed by Drs. Ganesh Lafleur, Mabel Yeboah, Ant Galvan and colleagues, with an educational honorio from [employer]. Review of Systems Const Denies chills, Denies fatigue, Denies fever(s) and Denies headache(s) ENT Denies dysphagia, Denies dizziness, Denies otalgia, Denies headache(s), Denies neck pain, Denies odynophagia and Denies sore throat Card Denies chest pain, Denies palpitations and Denies dyspnea Resp Denies chest congestion, Denies cough and Denies dyspnea GI Denies abdominal pain, Denies constipation, Denies dysphagia, Denies heartburn, Denies diarrhea, Denies nausea, Denies odynophagia and Denies vomiting Denies difficulty voiding, Denies nocturia, Denies dysuria and Denies urinary urgency Musc Denies back pain and Denies neck pain Skin/Breast Denies rash Neuro Denies dizziness and Denies headache(s) Psych Reports anxiety Endo Denies fatigue and Denies palpitations Physical exam (Primary Care) Vital Signs: Last Vital Signs Pulse 83 01/03/25 15:06 BP 132/76 01/03/25 15:06 Pulse Ox 96 01/03/25 15:06 Oxygen Delivery Method Room Air 01/03/25 15:06 BMI result Body Mass Index 29.9 Tobacco/Smoking Status: Tobacco use Status Tobacco use date assessed 01/03/25 01/03/25 15:12 Patient Tobacco Use Status Former Tobacco user 01/03/25 15:12 e-Cigarette/Vaping Use Never Used 01/03/25 15:12 PHQ-9: PHQ-9 Score PHQ-9: Total score 0 01/08/25 22:25 Depression Screening Interpretation: Negative Thrive Assessment: Date of Thrive Assessment Date Thrive assessed 01/03/25 01/03/25 15:12 Currently or been in a relationship where the following occur: No concerns reported Const General: no acute distress and alert HENMT Ears: TM's normal bilaterally and EAC's normal Throat: Yes posterior oropharynx normal and Yes tonsils normal (no TP congestion noted) Neck Neck: Yes supple and No lymphadenopathy Thyroid: Thyroid normal Resp Auscultation: clear to auscultation bilaterally, no rales and no wheezes Cardio Rate: regular rate Rhythm: regular rhythm Heart sounds: no murmurs GI Palpation (GI): Soft to palpation and nontender Auscultation: normal bowel sounds General: Yes no CVA tenderness Back/Spine/Pelvis Back: no CVA tenderness Thoracic/Lumbar Spine: No lumbar spinal tenderness Skin Rashes: no rashes Extrem General: Yes no clubbing, cyanosis or edema Results Reviewed Results Reviewed: Laboratory Tests 04/20/20 11/28/24 13:48 09:05 WBC 7.8 Hgb 13.8 Hct 40.2 Plt Count 274 Sodium 144 Potassium 3.8 Creatinine 0.77 Est GFR (Non-Af Amer) > 60 Fasting Glucose 121 H Calcium 9.6 AST 21 ALT 17 Triglycerides 177 H Cholesterol 206 H LDL Cholesterol, Calc 112 H HDL Cholesterol 59 25-OH Vitamin D Total 20.5 L TSH 2.26 Coding Level of Care Code Est Pt Level 4 (44569) Diagnoses Mixed hyperlipidemia E78.2 Impaired fasting glucose R73.01 Vitamin D deficiency E55.9 GERD without esophagitis K21.9 Irritable bowel syndrome with constipation K58.1 Irritable bowel syndrome type: with constipation Sigmoid diverticulitis K57.32 Overweight (BMI 25.0-29.9) E66.3 Additional Codes PHQ-9 - 91179 - PHQ-9 Billing: Yes ([id number]) Assessment & Plan Assessment & Plan (1) Mixed hyperlipidemia: Code(s): E78.2 - Mixed hyperlipidemia Category: Medical Plan: Result of her labs done a few weeks ago reviewed and discussed with patient - she is advised that her total cholesterol level and serum triglyceride level are both still elevated but have improved significantly from her numbers back in 2020 Reinforced low cholesterol diet Will have patient recheck her labs and fasting lipids in 1 year for follow up (2) Impaired fasting glucose: Code(s): R73.01 - Impaired fasting glucose Category: Medical Plan: Patient is advised that her fasting glucose level is slightly elevated on her recent labs at 121 mg/dl Reinforced low calorie/low carb diet Will recheck this and also check her HgbA1c in 1 year for follow up (3) Vitamin D deficiency: Code(s): E55.9 - Vitamin D deficiency, unspecified Category: Medical Plan: She is advised that her Vitamin D level was low on her recent labs Will start her on Vitamin D3 2000 units QD (4) GERD without esophagitis: Code(s): K21.9 - Gastro-esophageal reflux disease without esophagitis Category: Medical Plan: Dietary restrictions reinforced Have advised her that she can take OTC Famotidine 20 mg BID PRN and/or OTC Omeprazole 20 mg QD (5) IBS (irritable bowel syndrome): Code(s): K58.9 - Irritable bowel syndrome, unspecified Category: Medical Qualifiers: Irritable bowel syndrome type: with constipation Qualified Code(s): K58.1 - Irritable bowel syndrome with constipation Plan: Continue Dicyclomine 10 mg QID PRN (6) Sigmoid diverticulitis: Comment: CT Abdomen and pelvis done at [facility] a few days ago on 04/13/2021 revealed (+) acute sigmoid diverticulitis Code(s): K57.32 - Diverticulitis of large intestine without perforation or abscess without bleeding Category: Medical Plan: States that she's had a few bouts of recurrent sigmoid diverticulitis over the past few years and has therefore been referred by Dr. Pal to Dr. Bishop for consideration for elective sigmoid colectomy but patient requested for a referral to colorectal surgery at [facility] recently and was reportedly advised by this other surgeon to avoid partial colectomy at this time so she is currently at a loss on what she should do I have advised her that as I have not yet received any correspondence from [facility], I cannot make any comment or give her any advice at this time We will try to request for copies of both surgeon's recommendations to be sent over AIDE for review and advised patient that I will reach out to her if I have any constructive advice to offer her by then (7) Overweight (BMI 25.0-29.9): Code(s): E66.3 - Overweight Category: Medical Plan: Reinforced diet/exercise as tolerated/lose weight Plan To return in 1 year for her next annual physical examination
--- OUTSIDE RECORDS SUMMARY | 2025-01-03 17:56 | XMS_ITS ---
Author Organization [facility] Address [address] [place] [address] Care Team Providers Care Case Managers Name Role Phone Leland LOMBARDI, [place] Primary Care Provider Ganesh Cano [phone] REASON FOR VISIT left message on v/m Medications Medication SIG (Take, Route, Frequency, Duration) Notes Start Date End Date Status Amoxicillin-Pot Clavulanate 875-125 MG 1 tablet Orally every 8 hrs for 10 days 05/02/2024 Active Encounters Encounter Location Date Provider Diagnosis [facility] [address] [place] [address] 05/02/20 24 Ganesh Pal Plan Of Treatment Medication Medication Name Sig Start Date Stop Date Notes Amoxicillin-Pot Clavulanate 875-125 MG 1 tablet Orally every 8 hrs for 10 days 05/02/2024 Progress Notes * VIC SINGHDOB:[birth year] (68 yo F)Acc No.[id number]:05/02/2024 Patient:?VIC SINGH :1955???Age:68 Y???Sex:Female Address:[address] [place] [address], [address] * Refills? Start Amoxicillin-Pot Clavulanate Tablet, 875-125 MG, Orally, 30 Tablet, 1 tablet, every 8 hrs, 10 days, Refills=0 * true * Date:? Generated for Printi shannan/Shelli/eTransmitting on:?01/03/2025 05:56 PM EDT
--- OUTSIDE RECORDS SUMMARY | 2025-01-03 17:56 | XMS_ITS | Patient Health Record ---
Author Organization [facility] Address [address] [place] [address] Care Team Providers Care Nut Sheller Machine Operator Name Role Phone Leland LOMBARDI, [place] Primary Care Provider Ganesh Cano Unavailable [phone] Allergies Allergen (clinical drug ingredient) Drug/Non Drug Allergy documented on EMR Reaction Allergy Type Onset Date Status metronidazole Metronidazole Unknown Drug Allergy Active levofloxacin Levofloxacin Unknown Drug Allergy A ctive Reason For Referral No Information Medications Medication SIG (Take, Route, Frequency, Duration) Notes Start Date End Date Status Metamucil Active Amoxicillin-Pot Clavulanate 875-125 MG 1 tablet Orally every 8 hrs for 10 days 05/02/2024 Active Dicyclomine HCl 10 MG TAKE 1 TO 2 CAPSUL ES BY MOUTH EVERY 6 HOURS NEEDED FOR ABDOMINAL CRAMPS/DISCOMFORT for 5 Active Fiber Choice Active Tylenol PRN Active Ibuprofen PRN Active Immunizations Vaccine Route Administration Date Status Comme nts Influenza Unknown 09/15/2019 Administered Influenza Unknown 08/22/2020 Administered Influenza Unknown 06/05/2022 Administered Social History Tobacco Use: Social History Observation Description Date Details (start date - stop date) Former Smoker NA - NA Tobacco Use/Smoking Question Answer Notes Patient is a former smoker When did you stop smoking? 34 years ago How long has it been since you last smoked? > 10 years Alcohol Screen Question Answer Notes Did you have a drink containing alcohol in the p ast year? No Points 0 Interpretation Negative Section Notes: Nonsmoker; no alcohol; > 6 c ans of Diet Coke Nonsmoker; no alcohol; > 6 c ans of Diet Coke Nonsmoker; no alcohol; > 6 c ans of Diet Coke Nonsmoker; no alcohol; > 6 c ans of Diet Coke Nonsmoker; no alcohol; > 6 c ans of Diet Coke Nonsmoker; no alcohol; > 6 c ans of Diet Coke Problems Problem Type SNOMED Code ICD Code Onset Dates Problem Status W/U Status Risk Notes Problem Screening for malignant neoplasm of colon (639983988) Encounter for screening for malignant neoplasm of colon (Z12.11) Active confirmed Problem History of adenomatous polyp of colon (650185577) History of adenomatous polyp of colon (Z86.010) Active confirmed Problem 653752598 Diverticulitis (K57.92) Active confirmed Problem 413331732 Gastroesophageal reflux disease, esophagitis presence not specified (K21.9) Active confirmed Problem 630218766 Family history o f colon cancer (Z80.0) Active confirmed Problem 559787201 Abnormal CT scan , sigmoid colon (R93.3) Active confirmed Problem 33644834 Irritable bowel syndrome, unspecified type (K58.9) Active confirmed Problem Left lower quadrant pain (528096419) Abdominal pain, acute, left lower quadrant (R10.32) Active confirmed Problem Diverticulosis of colon (251806288) Diverticulosis of colon (K57.30) Active confirmed Encounters Encounter Location Date Provider Diagnosis [facility] [address] [place] [address] 05/02/2024 Ganesh Pal [facility] [address] [place] [address] 10/31/2024 Ganesh Pal Plan Of Treatment Pending Test Test Name Order Date BUN 03/07/2020 BUN 11/15/2020 BUN 01/26/2020 CREATININE 03/07/2020 CREATININE 11/15/2020 CREATININE 01/26/2020 LIVER PROFILE 11/15/2020 AMYLASE 11/15/2020 LIPASE 11/15/2020 CBC w DIFF 11/15/2020 CT ABD & PELVIS WITH CONTRAST 11/15/2020 Future Test Test Name Order Date UPPER GI ENDOSCOPY 07/31/2017 COLONOSCOPY 07/31/2017 COLONOSCOPY 09/02/2022 Insurance Providers Payer Name Payer Address Payer Phone Subscriber Number Group Number Insured Name Patient Relationship to Insured Coverage Start Date Coverage End Date [facility] [address] [place] [phone] [id number] VIC SINGH Self - patient is the insured Medical (General) History Medical History History ICD Code Denies CO,DM,CVA,Lung disease,renal dise ase Diverticulitis 2014--seen on CT scan---o utpatient antibiotics EGD in 09/2017-HH, normal du odenal bx, gastric bx neg for Hpylori, normal esophageal biopsies Colonoscopy in 09/2017-1 sma ll tubular adenoma, colon biopsies were neg. for microscopic colitis Diverticulitis in 05/2019(out patient antibiotics) and 12/2019(hospitalized for 1 week at [facility])--CT had an abscess. She had some increasing pain toward the end of February and a followup CAT scan described improvement as compared to the CAT scan in December, but there was still some residual inflammation and a smaller abscess as compared to the scan back in December. CT scan in 04/2020 improved with no further inflammation nor abscess. She saw Dr. Bishop in 03/2020 who reommended surgery at her [...]
--- OUTSIDE RECORDS SUMMARY | 2025-01-03 17:56 | XMS_ITS | Clinical Summary ---
Author Organization [facility] Address [address] [place] [address] Care Team Providers Care Call Or Contact Centre Coach Name Role Phone Justyn Ha Primary Care Provider [phone] Allergies Active Allergy Reactions Criticality Noted Date Comments Levofloxacin Rash Low 12/26/2019 Metronidazole Rash Low 12/26/2019 Medications dicyclomine (BENTYL) 10 mg capsule SMARTSI- 2 Capsule(s) By Mouth Every 6 Hours PRN 10/25/2024 Active Encounters Date Type Department Care Team Description 12/07/2024 3:20 PM EST Office Visit [facility] [address] [place] [phone] Distributor Sales Manager: Inocente Nunez MD Diverticulitis of large intestine without perforation or abscess without bleeding (Primary Dx); Irritable bowel syndrome with constipation 11/29/2024 Telephone [facility] [address] [place] [phone] Distributor Sales Manager: Kiah Phan from Last 3 Months Family History Medical History Relation Name Comments Colon cancer Father per patient Diverticulitis Mother per patient Relation Name Status Comments Father Mother Social History Tobacco Use Types Packs/Day Years Used Date Smoking Tobacco: Former Cigarettes 1 1971 Smokeless Tobacco: Never Tobacco Cessation:Counseling Given: Not Answered Alcohol Use Standard Drinks/Week Comments Never 0 (1 standard drink = 0.6 oz pur e alcohol) Comments Unknown Sex and Gender Information Value Date Recorded Sex Assigned at Female 12/07/2024 3:18 PM EST Legal Sex Female 11:06 AM EST Gender Identity Not on file Sexual Orientation Not on file Last Filed Vital Signs Vital Sign Reading Time Taken Comments Blood Pressure 158/82 12/07/2024 3:57 PM EST Pulse 71 12/07/2024 3:57 PM EST Temperature 36.8 ??C (98.2 ??F) 12/07/2024 3:57 PM ES T Respiratory Rate 18 12/07/2024 3:57 PM EST Oxygen Saturation 95% 12/07/2024 3:57 PM EST Inhaled Oxygen Concentration - - Weight 83.9 kg (185 lb) 12/07/2024 3:57 PM EST Height 167.6 cm (5' 6 ) 12/07/2024 3:57 PM EST Body Mass Index 29.86 12/07/2024 3:57 PM EST Plan of Treatment Health Maintenance Due Date Last Done Comments Cologuard 1955 FOBT / Fit Test 1955 Hepatitis C Screening 1955 Sigmoidoscopy 1955 Mammogram 1995 Osteoporosis Screening 12/27/2005 Zoster Vaccines (2 of 2) 11/02/2019 09/07/2019 DTaP,Tdap,and Td Vaccines (2 - Td or Tdap) 04/22/2022 04/22/2012 COVID-19 Vaccine (3 - season) 2024 08/10/2021, 01/07/2021 Alcohol/Substance Use Screening 10/05/2024 Depression Screening and Follow-Up 10/05/2024 Health Care Proxy Review 10/05/2024 Social Drivers of Health Annual Screening 10/05/2024 RSV Vaccine (60+ years old and patients) (1 - 1-dose 75+ series) 12/27/2030 Colon Cancer Screening 11/17/2032 Colonoscopy 11/17/2032 11/17/2022 Influenza Vaccine Completed 11/13/2024, , 06/05/2022, Additional history exists Pneumococcal Vaccine: 50+ Years Completed 11/13/2024 Hepatitis B Vaccines Aged Out No long er eligible based on patient's age to complete this topic Procedures * Due to [place] state law, this organization might not be sharing negative HIV tests. Procedure Name Priority Date/Time Associated Diagnosis Comments AMB EXTERNAL CT ABDOMEN, OUT SIDE RESULT 11/29/2024 HM COLONOSCOPY 11/17/2022 from Last 3 Months or Most Recently Relevant to Health Maintenance Results * Due to [place] state law, this organization might not be sharing negative HIV tests. * CT Abdomen, Outside Result (11/29/2024) Anatomical Region Laterality Modality Other 11/29/2024 us Onbase Scan [facility] AMB EXTERNAL RESULT PROCEDURE S Final Result * HM Colonoscopy (11/17/2022) 11/17/2022 us Onbase Scan [facility] HEALTH MAINTENANCE Final Resu lt from Last 3 Months or Most Recently Relevant to Health Maintenance Insurance [facility] Care Teams Call Or Contact Centre Coach Relationship Specialty Start Date End Date Justyn Ha [address] [place] [address] [place] [address] PCP - General Internal Medicine 12/07/24
--- OUTSIDE RECORDS SUMMARY | 2025-01-03 17:57 | XMS_ITS | Clinical Summary ---
Author Organization [facility] Address [address] [place] [address] Care Team Providers Care Certified Alcohol Drug Counselor Name Role Phone Justyn Ha MD Primary Care Provider [phone] Immunizations Name Administration Dates Next Due Covid-19, [...] Pap Smear Discontinued Zoster (Zostavax) Discontinued Insurance [facility] Care Teams Certified Alcohol Drug Counselor Relationship Specialty Start Date End Date Justyn Ha MD [address] [place] [address] PCP - General Internal Medicine 11/07/20
--- OUTSIDE RECORDS SUMMARY | 2025-01-03 17:57 | XMS_ITS | Referral Summary ---
Author Organization [facility] Address [address] [place] [address] Care Team Providers Care Student Services Advisor Name Role Phone Justyn Ha Primary Care Provider [phone] Encounters Date Type Department Care Team Description 12/07/2024 3:20 PM EST Office Visit [facility] Surgery [address] [place], [place] [phone] Ingot Passer: Inocente Nunez MD Diverticulitis of large intestine without perforation or abscess without bleeding (Primary Dx); Irritable bowel syndrome with constipation 11/29/2024 Telephone [facility] [address] [place], [place] [phone] Ingot Passer: Kiah Phan from Last 3 Months Allergies Active Allergy Reactions Criticality Noted Date Comments Levofloxacin Rash Low 12/26/2019 Metronidazole Rash Low 12/26/2019 Medications dicyclomine (BENTYL) 10 mg capsule SMARTSI- 2 Capsule(s) By Mouth Every 6 Hours PRN 10/25/2024 Active Social History Tobacco Use Types Packs/Day Years Used Date Smoking Tobacco: Former Cigarettes 1 7 - 1971 Smokeless Tobacco: Never Tobacco Cessation:Counseling Given: [...] 12/07/2024 3:57 PM EST Plan of Treatment Not on file Procedures * Due to [place] [employer] law, this organization might not be sharing negative HIV tests. Procedure Name Priority Date/Time Associated Diagnosis Comments AMB EXTERNAL CT ABDOMEN, OUT SIDE RESULT 11/29/2024 HM COLONOSCOPY 11/17/2022 from Last 3 Months or Most Recently Relevant to Health Maintenance Results * Due to [place] [employer] law, this organization might not be sharing negative HIV tests. * CT Abdomen, Outside Result (11/29/2024) Anatomical Region Laterality Modality Other 11/29/2024 us Onbase Scan [facility] AMB EXTERNAL RESULT PROCEDURE S Final Result * Colonoscopy (11/17/2022) 11/17/2022 us Onbase Scan [facility] HEALTH MAINTENANCE Final Resu lt from Last 3 Months or Most Recently Relevant to Health Maintenance Insurance [facility] Care Teams Student Services Advisor Relationship Specialty Start Date End Date Justyn Ha [address] [place] [address] [place] [address] PCP - General Internal Medicine 12/07/24
--- OUTSIDE RECORDS SUMMARY | 2025-01-03 17:57 | XMS_ITS ---
Author Organization [facility] Address [address] [facility] [address] [place] [address] Care Team Providers Care Cleaner And Dyer Name Role Phone Leland LOMBARDI, [place] Primary Care Provider Ganesh Cano [phone] REASON FOR VISIT diverticulitis Medications Medication SIG (Take, Route, Frequency, Duration) Notes Start Date End Date Status Amoxicillin-Pot Clavulanate 875-125 MG 1 tablet Orally every 8 hrs for 10 days 05/02/2024 Active Encounters Encounter Location Date Provider Diagnosis [facility] [address] [address] 10/31/2024 Ganesh Pal Plan Of Treatment Medication Medication Name Sig Start Date Stop Date Notes Amoxicillin-Pot Clavulanate 875-125 MG 1 tablet Orally every 8 hrs for 10 days 05/02/2024 Progress Notes * VIC SINGHDOB:[birth year] (68 yo F)Acc No.[id number]:10/31/2024 Patient:?VIC SINGH :1955???Age:68 Y???Sex:Female Address:[address] [place] [address], [address] * Refills? Refill Amoxicillin-Pot Clavulanate Tablet, 875-125 MG, Orally, 30 Tablet, 1 tablet, every 8 hrs, 10 days, Refills=0 * true * Date:? Generated for Ngozi campbell/Shelli/eTransmitting on:?01/03/2025 05:56 PM EDT
== END 2025-01-03 15:50 | disposition home or self-care (01) ==
LOC: HO.HMCH 15:03
PROVIDERS: PCP Internal Medicine; Visit Provider Internal Medicine
DX: E78.2 Mixed hyperlipidemia (principal); R73.01 Impaired fasting glucose; E55.9 Vitamin D deficiency, unspecified; K21.9 Gastro-esophageal reflux disease without esophagitis; K58.1 Irritable bowel syndrome with constipation; K57.32 Diverticulitis of large intestine without perforation or abscess without bleeding; E66.3 Overweight

== ENCOUNTER → 2025-01-03 15:01 | Outpatient (BNVA) | payer OTHER, SELFPAY | PROVIDERS: PCP Internal Medicine; Visit Provider Internal Medicine | DX: E78.2 Mixed hyperlipidemia (principal); R73.01 Impaired fasting glucose; E55.9 Vitamin D deficiency, unspecified; K21.9 Gastro-esophageal reflux disease without esophagitis; K58.1 Irritable bowel syndrome with constipation; K57.32 Diverticulitis of large intestine without perforation or abscess without bleeding; E66.3 Overweight; Z68.29 Body mass index [BMI] 29.0-29.9, adult; Z79.899 Other long term (current) drug therapy | CPT/HCPCS: 96127 ==